=== PATIENT | male | born 1985 | race American Indian/Alaskan Native ===

== ENCOUNTER 2017-11-30 00:29 | Emergency (ER) | payer SELFPAY ==
--- NOTE | 2017-11-30 02:54 | XRay Report ---
FINAL REPORT PROCEDURE: XR CHEST ROUTINE 2V TECHNIQUE: PA and lateral chest radiographs were obtained. CPT 90146 HISTORY: shortness of breath COMPARISON: No prior studies are available for comparison. FINDINGS: Heart: Normal. Mediastinum/Vessels: Normal. Lungs/Pleural space: Normal. Bony thorax: No acute osseous abnormality. Other: IMPRESSION: Normal examination.
[2017-11-30 03:14] LABS: Hematocrit 42.2 % (35.5-45.6); Hemoglobin 13.9 gm/dl (11.8-15.2); Mean Corpuscular HGB Conc 33 % (32-34); Mean Corpuscular Hemoglobin 27 pg (28-32); Mean Corpuscular Volume 82 fl (84-94); Platelet Count 238 K/mm3 (140-440); Red Blood Count 5.13 M/mm3 (3.65-5.03)
[2017-11-30 03:50] LABS: BUN/Creatinine Ratio 16; Blood Urea Nitrogen 13 mg/dL (9-20); Calcium 9.4 mg/dL (8.4-10.2); Hemolysis Index 2
--- NOTE | 2017-11-30 07:17 | Emergency Department Report ---
Minor Respiratory - HPI Chief Complaint: Upper Respiratory Infection Stated Complaint: COUGHING Time Seen by Provider: 11/30/17 07:14 Duration: 6 days Pain Location: Nose (congestion) Severity: moderate Minor Respiratory: Yes Rhinorrhea, Yes Able to Tolerate Fluids, Yes Cough, Yes Shortness of Breath, No Sore Throat, No Ear Pain, No Sick Contacts, No Hemoptysis, No Chest Pain, No Fever Other History: This is a 32-year-old -[place] male who presents with a productive cough for 6 days with shortness of breath and chest tightness. Patient reports having history of asthma. Patient states he is having productive cough with yellowish age sputum. He has not tried taking anything for symptomatic relief. Denies fever, nausea or vomiting, abdominal pain, and sinus pressure. ED Review of Systems ROS: Stated complaint: COUGHING Other details as noted in HPI Constitutional: denies: chills, fever Respiratory: cough, shortness of breath. denies: wheezing Cardiovascular: chest pain (chest tightness with cough). denies: palpitations, dyspnea on exertion, edema, syncope Gastrointestinal: denies: abdominal pain, nausea, vomiting, diarrhea Skin: denies: rash, lesions Neurological: denies: headache, weakness, paresthesias ED Past Medical Hx - Medications Home Medications: Home Medications Medication Instructions Recorded Confirmed Last Taken Type Benzonatate [Tessalon Perle] 100 mg PO TID #30 capsule 11/30/17 Unknown Rx Fluticasone [Flonase] 1 spray NS QDAY #1 bottle 11/30/17 Unknown Rx amLODIPine [Norvasc] 5 mg PO DAILY #30 tab 11/30/17 Unknown Rx guaiFENesin [Guaifenesin] 400 mg PO BID #14 tablet 11/30/17 Unknown Rx Minor Respiratory Exam - Exam General: Vital signs noted. No distress. Alert and acting appropriately. HEENT: Yes Moist Mucous Membranes, Yes Rhinorrhea (turbinates mildly congested with clear discharge), No Pharyngeal Erythema, No Pharyngeal Exudates, No Conjuctival Injection, No Frontal Tenderness, No Maxillary Tenderness Ear: Neither TM Bulge, Neither TM Erythema, Neither EAC Pain, Neither EAC Discharge Neck: Yes Supple, No Adenopathy Lungs: Yes Good Air Exchange, Yes Cough, No Wheezes, No Ronchi, No Stridor, No Labored Respirations, No Retractions, No Use of Accessory Muscles, No Other Abnormal Lung Sounds Heart: Yes Regular, No Murmur Abdomen: Yes Normal Bowel Sounds, No Tenderness, No Peritoneal Signs Skin: No Rash, No Edema Neurologic: Alert and oriented, no deficits. Musculoskeletal: Unremarkable. ED Course Vital Signs 11/30/17 11/30/17 01:00 01:57 Temperature 98.3 F 98.3 F Pulse Rate 58 L 57 L Respiratory 16 16 Rate Blood Pressure 180/107 180/107 O2 Sat by Pulse 100 100 Oximetry ED Medical Decision Making - Lab Data Result diagrams: 11/30/17 03:00 11/30/17 03:00 - Radiology Data Radiology results: report reviewed PROCEDURE: XR CHEST ROUTINE 2V TECHNIQUE: PA and lateral chest radiographs were obtained. CPT 95401 HISTORY: shortness of breath COMPARISON: No prior studies are available for comparison. FINDINGS: Heart: Normal. Mediastinum/Vessels: Normal. Lungs/Pleural space: Normal. Bony thorax: No acute osseous abnormality. Other: IMPRESSION: Normal examination. - Medical Decision Making 32 y.o. male that presents with URI symptoms. Patient examined by me and stable. History of asthma. No distress noted. Blood pressure slightly elevated. Chest xray has been obtained and dictated by radiologist. Patient notified of normal x-ray results with no questions. Labs obtained, potassium low, replaced with Klor-Con 40 MEQ. Given Norvasc 5 mg by mouth once while in the ER. Blood pressure is trending down and patient is asymptomatic. Reviewed results with patient. Encouraged to do supportive care for URI. Start amlodipine 5 mg by mouth daily, Flonase, benzonatate 100 mg 3 times a day when necessary, and guaifenesin. Instructed to keep a blood pressure log and follow up with the primary care provider for hypertension. Follow up with Primary Care Provider at [facility] in 2-3 days. Discharged home stable. Critical care attestation.: If time is entered above; I have spent that time in minutes in the direct care of this critically ill patient, excluding procedure time. ED Disposition Clinical Impression: Asymptomatic hypertension, Elevated blood pressure reading without diagnosis of hypertension, Chest pain in adult, Hypokalemia Upper respiratory infection Qualifiers: URI type: acute nasopharyngitis (common cold) Qualified Code(s): J00 - Acute nasopharyngitis [common cold] Disposition: DC-01 TO HOME OR SELFCARE Is pt being admited?: No Does the pt Need Aspirin: No Condition: Stable Instructions: Chest Pain (ED), Upper Respiratory Infection (ED), DASH Eating Plan (ED), Hypertension (ED) Additional Instructions: Moderate caffeine consumption is acceptable. Begin and maintain aerobic exercise, with a goal of at least 30 minutes of moderate intensity, dynamic aerobic exercise (walking, jogging, cycling, or swimming) 5 days per week to total 150 minutes as tolerated or recommended by a physician. Keep a blood pressure log for 1-2 weeks to take with you to a primary care provider for follow-up of high blood pressure. Take medication daily as prescribed. Increase fluid intake and rest. Wash hands frequently. Continue taking tylenol or ibuprofen to control fever. F/U with Primary Care Provider in 2-3 days. Return to ER if fever, SOB, or difficulty breathing after 48 hours of supportive care. Prescriptions: amLODIPine [Norvasc] 5 mg PO DAILY #30 tab Benzonatate [Tessalon Perle] 100 mg PO TID #30 capsule Fluticasone [Flonase] 1 spray NS QDAY #1 bottle guaiFENesin [Guaifenesin] 400 mg PO BID #14 tablet Referrals: [facility] [Outside] - 3-5 Days [facility] [Outside] - 3-5 Days [facility] [Outside] - 3-5 Days Forms: Work/School Release Form(ED) Time of Disposition: 08:33 Print Language: ROMANSH
[2017-11-30 07:19] LABS: Anisocytosis 1+; Band Neutrophils # (Manual) 0.1 K/mm3; Basophils % (Manual) 0 % (0.0-1.8); Eosinophils % (Manual) 0 % (0.0-4.3); Hypochromasia Few; Total Cells Counted 100
[2017-11-30] MEDS ORDERED: CATAPRES PO ONE (07:49)
[2017-11-30] MEDS ORDERED: K-DUR PO ONE (07:55)
[2017-11-30] MEDS ORDERED: NORVASC PO ONE (08:12)
[2017-11-30 08:44] VITALS: BP 161/106
== END 2017-11-30 08:42 | disposition home or self-care (01) ==
LOC: ED 00:29
DX: J00 Acute nasopharyngitis [common cold] (principal); R07.89 Other chest pain; E87.6 Hypokalemia; I10 Essential (primary) hypertension; J45.909 Unspecified asthma, uncomplicated
CPT/HCPCS: 36415; 71046; 80048; 85007; 85025

== ENCOUNTER 2018-01-08 00:13 | Emergency (ER) | payer SELFPAY ==
[2018-01-08 01:53] VITALS: BP 177/100
[2018-01-08] MEDS ORDERED: ASPIRIN PO ONE (01:53)
[2018-01-08 02:24] LABS: Basophils % (Auto) 0.6 % (0.0-1.8); Eosinophils # (Auto) 0.2 K/mm3 (0.0-0.4); Eosinophils % (Auto) 4.4 % (0.0-4.3); Hematocrit 39.3 % (35.5-45.6); Hemoglobin 12.8 gm/dl (11.8-15.2); Lymphocytes # (Auto) 1.5 K/mm3 (1.2-5.4); Lymphocytes % (Auto) 33.2 % (13.4-35.0); Mean Corpuscular HGB Conc 33 % (32-34); Mean Corpuscular Hemoglobin 27 pg (28-32); Mean Corpuscular Volume 82 fl (84-94); Monocytes # (Auto) 0.6 K/mm3 (0.0-0.8); Platelet Count 219 K/mm3 (140-440); Red Blood Count 4.77 M/mm3 (3.65-5.03); Red Cell Distribution Width 15.5 % (13.2-15.2)
[2018-01-08 02:29] LABS: BUN/Creatinine Ratio 19; Blood Urea Nitrogen 13 mg/dL (9-20); Hemolysis Index 2
--- NOTE | 2018-01-08 05:48 | Emergency Department Report ---
HPI - General Chief Complaint: Chest Pain Time Seen by Provider: 01/08/18 03:18 - HPI HPI: 33-year-old male presents to the ED with chest pain chest pain, onset 4 days hour prior to evaluation while at rest, Location: Right chest Radiation: none, Severity now (0-10): 2, Severity at worst (0-10): 8 Duration: 5 minutes characterized as: sharp. The pain is relieved with aspirin, Patient denies exertional pain, patient denies pleuritic pain. Patient denies associated symptoms, such as nausea/vomiting, no diaphoresis, no shortness of breath. ED Past Medical Hx - Past Medical History Hx Hypertension: Yes Additional medical history: Morbid Obesity - Surgical History Past Surgical History?: No - Family History Family history: hypertension - Social History Smoking Status: Never Smoker Substance Use Type: None - Medications Home Medications: Home Medications Medication Instructions Recorded Confirmed Last Taken Type Benzonatate [Tessalon Perle] 100 mg PO TID #30 capsule 11/30/17 Unknown Rx Fluticasone [Flonase] 1 spray NS QDAY #1 bottle 11/30/17 Unknown Rx guaiFENesin [Guaifenesin] 400 mg PO BID #14 tablet 11/30/17 Unknown Rx ED Review of Systems ROS: Stated complaint: CHEST PAIN Other details as noted in HPI Comment: All other systems reviewed and negative Cardiovascular: chest pain. denies: edema Physical Exam - Physical Exam Vital Signs: Vital Signs 01/08/18 01/08/18 00:14 01:08 Temperature 98.1 F 98.1 F Pulse Rate 51 L 51 L Respiratory 18 18 Rate Blood Pressure 177/100 177/100 O2 Sat by Pulse 97 99 Oximetry Physical Exam: - Physical Exam Physical Exam: - General Limitations: No Limitations General appearance: alert, in no apparent distress, obese - Head Head exam: Present: atraumatic, normocephalic - Eye Eye exam: Present: normal appearance - ENT ENT exam: Present: mucous membranes moist - Neck Neck exam: Present: normal inspection - Respiratory Respiratory exam: Present: normal lung sounds bilaterally. Absent: respiratory distress - Cardiovascular Cardiovascular Exam: Present: normal rhythm. Absent: systolic murmur, diastolic murmur, rubs, gallop - GI/Abdominal GI/Abdominal exam: Present: soft, normal bowel sounds - Extremities Exam Extremities exam: Present: normal inspection - Back Exam Back exam: Present: normal inspection - Neurological Exam Neurological exam: Present: alert, oriented X3 - Psychiatric Psychiatric exam: normal affect and mood - Skin Skin exam: Present: warm, dry, intact, normal color. Absent: rash ED Course Vital Signs 01/08/18 01/08/18 00:14 01:08 Temperature 98.1 F 98.1 F Pulse Rate 51 L 51 L Respiratory 18 18 Rate Blood Pressure 177/100 177/100 O2 Sat by Pulse 97 99 Oximetry ED Medical Decision Making - Lab Data Result diagrams: 01/08/18 02:00 01/08/18 02:00 Critical care attestation.: If time is entered above; I have spent that time in minutes in the direct care of this critically ill patient, excluding procedure time. ED Disposition Clinical Impression: Chest pain Qualifiers: Chest pain type: other chest pain Qualified Code(s): R07.89 - Other chest pain Hypertension Qualifiers: Hypertension type: essential hypertension Qualified Code(s): I10 - Essential ( primary) hypertension Disposition: DC- TO HOME OR SELFCARE Is pt being admited?: No Does the pt Need Aspirin: No Condition: Stable Instructions: Chest Pain (ED), Hypertension (ED) Referrals: SAL MCKEON MD [Staff Physician] - 3-5 Days PRIMARY CARE, [Primary Care Provider] - 3-5 Days
== END 2018-01-08 06:46 | disposition home or self-care (01) ==
LOC: ED 00:13
DX: R07.89 Other chest pain (principal); I10 Essential (primary) hypertension; E66.01 Morbid (severe) obesity due to excess calories; Z68.43 Body mass index [BMI] 50.0-59.9, adult
CPT/HCPCS: 36415; 80048; 84484; 85025; 93005; 93010

== ENCOUNTER 2018-06-14 19:54 | Emergency (ER) | payer SELFPAY ==
[2018-06-14 21:38] LABS: Hematocrit 43.7 % (35.5-45.6); Hemoglobin 14.4 gm/dl (11.8-15.2); Mean Corpuscular HGB Conc 33 % (32-34); Mean Corpuscular Volume 82 fl (84-94); Platelet Count 255 K/mm3 (140-440); Red Blood Count 5.33 M/mm3 (3.65-5.03); Red Cell Distribution Width 14.5 % (13.2-15.2)
[2018-06-14 21:51] LABS: Alanine Aminotransferase 13 units/L (7-56); Albumin 4.3 g/dL (3.9-5); BUN/Creatinine Ratio 19; Blood Urea Nitrogen 13 mg/dL (9-20); Calcium 9.3 mg/dL (8.4-10.2); Hemolysis Index 7
--- NOTE | 2018-06-14 22:16 | XRay Report ---
FINAL REPORT EXAM: XR CHEST ROUTINE 2V HISTORY: JEWELS TECHNIQUE: Two view chest PA and lateral PRIORS: None. FINDINGS: Cardiac and mediastinal contours are unremarkable. No focal pulmonary infiltrate is identified. No pleural fluid collection seen. Pulmonary vasculature is unremarkable. IMPRESSION: Negative two-view chest
[2018-06-14 22:36] LABS: Band Neutrophils # (Manual) 0.1 K/mm3; Basophils % (Manual) 0 % (0.0-1.8); Ovalocytes Few; Total Cells Counted 100
[2018-06-14] MEDS ORDERED: DUONEB *Not for PRN Use IH ONE ×2 (23:08→23:23)
[2018-06-14] MEDS ORDERED: DECADRON IM ONE (23:25)
[2018-06-14] MEDS: NACL 0.9% 1000 ML 1,000 ML IV ONE ×3 (23:25→23:29)
[2018-06-14] MEDS ORDERED: IBUPROFEN PO ONE (23:25)
[2018-06-15 00:11] LABS: Bilirubin,Urine NEG (Negative); Blood,Urine SM (Negative); Calcium Oxalate Crystals,Urine 1+; Color,Urine Yellow (Yellow); Mucus,Urine 2+ /HPF; Protein,Urine <15 mg/dL mg/dL (Negative)
--- NOTE | 2018-06-15 00:17 | Emergency Department Report ---
- General Chief Complaint: Adult Asthma Stated Complaint: SOB/ABD/HEAD PAIN Time Seen by Provider: 06/14/18 23:21 Source: patient Mode of arrival: Ambulatory Limitations: No Limitations - History of Present Illness Initial Comments: Patient started 3-year-old -[place] male hx of obese COPD hypertension for cough nocturnal wheezing 3 days additional albuterol and Atrovent inhalers patient states inhalers help temporarily but cough returns she denies smoking there is no chest pain no nausea vomiting no dizziness no lightheadedness no new or worsening activity intolerance no PND no edema no swelling been no fever or chills. MD Complaint: cough, sore throat, rhinorrhea, nasal congestion Onset/Timin -: week(s) Severity: moderate Severity scale (0 -10): 4 Consistency: intermittent Improves With: other (inhalers ) Worsens With: activity Context: sick contacts Associated Symptoms: rhinorrhea, nasal congestion, cough, shortness of breath Treatments Prior to Arrival: none - Related Data Previous Rx's Medication Instructions Recorded Last Taken Type Benzonatate [Tessalon Perle] 100 mg PO TID #30 capsule 11/30/17 Unknown Rx Fluticasone [Flonase] 1 spray NS QDAY #1 bottle 11/30/17 Unknown Rx guaiFENesin [Guaifenesin] 400 mg PO BID #14 tablet 11/30/17 Unknown Rx Albuterol Sulfate [Proventil Hfa] 2 puff IH Q4H PRN #1 1000units 06/15/18 Unknown Rx Azithromycin [Zithromax Z-YOSVANY] 250 mg PO DAILY #6 tab 06/15/18 Unknown Rx Benzonatate [Tessalon Perles] 200 mg PO Q8HR PRN #30 capsule 06/15/18 Unknown Rx Dexamethasone [Decadron] 4 mg PO Q12H 3 Days #6 tablet 06/15/18 Unknown Rx Ibuprofen 800 mg PO TID PRN #30 tablet 06/15/18 Unknown Rx Ipratropium (Nf) [Atrovent HFA 2 puff IH Q4HR PRN #1 inha 06/15/18 Unknown Rx 17MCG/PUFF] Allergies Allergy/AdvReac Type Severity Reaction Status Date / Time No Known Allergies Allergy Verified 01/08/18 03:20 ED Review of Systems ROS: Stated complaint: SOB/ABD/HEAD PAIN Other details as noted in HPI Constitutional: denies: chills, fever Eyes: denies: eye pain, eye discharge, vision change ENT: throat pain, congestion Respiratory: cough, wheezing Cardiovascular: denies: chest pain, palpitations Endocrine: no symptoms reported Gastrointestinal: denies: abdominal pain, nausea, diarrhea Genitourinary: denies: urgency, dysuria Musculoskeletal: denies: back pain, joint swelling, arthralgia Skin: denies: rash, lesions Neurological: denies: headache, weakness, paresthesias Psychiatric: denies: anxiety, depression Hematological/Lymphatic: denies: easy bleeding, easy bruising ED Past Medical Hx - Past Medical History Previous Medical History?: Yes Hx Hypertension: Yes Hx Asthma: Yes Additional medical history: Morbid Obesity, sleep apnea, irregular heart beat - Surgical History Past Surgical History?: No - Social History Smoking Status: Current Every Day Smoker Substance Use Type: Marijuana - Medications Home Medications: Home Medications Medication Instructions Recorded Confirmed Last Taken Type Benzonatate [Tessalon Perle] 100 mg PO TID #30 capsule 11/30/17 Unknown Rx Fluticasone [Flonase] 1 spray NS QDAY #1 bottle 11/30/17 Unknown Rx guaiFENesin [Guaifenesin] 400 mg PO BID #14 tablet 11/30/17 Unknown Rx Albuterol Sulfate [Proventil Hfa] 2 puff IH Q4H PRN #1 1000units 06/15/18 Unknown Rx Azithromycin [Zithromax Z-YOSVANY] 250 mg PO DAILY #6 tab 06/15/18 Unknown Rx Benzonatate [Tessalon Perles] 200 mg PO Q8HR PRN #30 capsule 06/15/18 Unknown Rx Dexamethasone [Decadron] 4 mg PO Q12H 3 Days #6 tablet 06/15/18 Unknown Rx Ibuprofen 800 mg PO TID PRN #30 tablet 06/15/18 Unknown Rx Ipratropium (Nf) [Atrovent HFA 2 puff IH Q4HR PRN #1 inha 06/15/18 Unknown Rx 17MCG/PUFF] ED Physical Exam - General Limitations: No Limitations General appearance: alert, in no apparent distress - Head Head exam: Present: atraumatic, normocephalic - Eye Eye exam: Present: normal appearance, PERRL, EOMI Pupils: Present: normal accommodation - ENT ENT exam: Present: normal orophraynx, mucous membranes moist, TM's normal bilaterally, normal external ear exam - Neck Neck exam: Present: normal inspection, full ROM. Absent: tenderness, meningismus, lymphadenopathy, thyromegaly - Respiratory Respiratory exam: Present: normal lung sounds bilaterally, chest wall tenderness. Absent: respiratory distress, wheezes, rales, stridor - Cardiovascular Cardiovascular Exam: Present: regular rate, normal rhythm, normal heart sounds. Absent: systolic murmur, diastolic murmur, rubs, gallop - GI/Abdominal GI/Abdominal exam: Present: soft, normal bowel sounds. Absent: tenderness, bruit, hernia - Rectal Rectal exam: Present: deferred - Extremities Exam Extremities exam: Present: normal inspection, full ROM, normal capillary refill. Absent: tenderness, pedal edema, joint swelling, calf tenderness - Back Exam Back exam: Present: normal inspection, full ROM. Absent: tenderness, CVA tenderness (R), CVA tenderness (L), muscle spasm - Neurological Exam Neurological exam: Present: alert, oriented X3, CN II-XII intact, normal gait - Psychiatric Psychiatric exam: Present: normal affect, normal mood - Skin Skin exam: Present: warm, dry, intact, normal color. Absent: rash ED Medical Decision Making - Lab Data Result diagrams: 06/14/18 21:11 06/14/18 21:11 Labs 06/14/18 06/14/18 06/14/18 21:11 21:11 22:40 WBC 5.5 RBC 5.33 H Hgb 14.4 Hct 43.7 MCV 82 L MCH 27 L MCHC 33 RDW 14.5 Plt Count 255 Nolan % (Auto) Mold Preparer Add Manual Diff Complete Total Counted 100 Seg Neuts % (Manual) 70.0 Band Neutrophils % 1.0 Lymphocytes % (Manual) 13.0 L Reactive Lymphs % (Man) 0 Monocytes % (Manual) 14.0 H Eosinophils % (Manual) 2.0 Basophils % (Manual) 0 Metamyelocytes % 0 Myelocytes % 0 Promyelocytes % 0 Blast Cells % 0 Nucleated RBC % Not Reportable Seg Neutrophils # Man 3.9 Band Neutrophils # 0.1 Lymphocytes # (Manual) 0.7 L Abs React Lymphs (Man) 0.0 Monocytes # (Manual) 0.8 Eosinophils # (Manual) 0.1 Basophils # (Manual) 0.0 Metamyelocytes # 0.0 Myelocytes # 0.0 Promyelocytes # 0.0 Blast Cells # 0.0 WBC Morphology Not Reportable Hypersegmented Neuts Not Reportable Hyposegmented Neuts Not Reportable Hypogranular Neuts Not Reportable Smudge Cells Not Reportable Toxic Granulation Not Reportable Toxic Vacuolation Not Reportable Dohle Bodies Not Reportable Pelger-Huet Anomaly Not Reportable Vineet Rods Not Reportable Platelet Estimate Appears normal Clumped Platelets Not Reportable Plt Clumps, EDTA Not Reportable Large Platelets Not Reportable Giant Platelets Not Reportable Platelet Satelliting Not Reportable Plt Morphology Comment Not Reportable RBC Morphology Not Reportable Dimorphic RBCs Not Reportable Polychromasia Not Reportable Hypochromasia Not Reportable Poikilocytosis Not Reportable Anisocytosis Not Reportable Microcytosis Not Reportable Macrocytosis Not Reportable Spherocytes Not Reportable Pappenheimer Bodies Not Reportable Sickle Cells Not Reportable Target Cells Not Reportable Tear Drop Cells Not Reportable Ovalocytes Few Helmet Cells Not Reportable [place]rey[place] Bodies Not Reportable [place] Rings Not Reportable [place] Cells Not Reportable Bite Cells Not Reportable Crenated Cell Not Reportable Elliptocytes Not Reportable Acanthocytes (Spur) Not Reportable Rouleaux Not Reportable Hemoglobin C Crystals Not Reportable Schistocytes Not Reportable Malaria parasites Not Reportable Laurent Bodies Not Reportable Hem Pathologist Commnt No Sodium 141 Potassium 3.7 Chloride 103.6 Carbon Dioxide 26 Anion Gap 15 BUN 13 Creatinine 0.7 L Estimated GFR > 60 BUN/Creatinine Ratio 19 Glucose 89 Calcium 9.3 Total Bilirubin 0.40 AST 11 ALT 13 Alkaline Phosphatase 51 Total Protein 6.7 Albumin 4.3 Albumin/Globulin Ratio 1.8 Urine Color Yellow Urine Turbidity Clear Urine pH 5.0 Ur Specific [place] 1.033 H Urine Protein <15 mg/dl Urine Glucose (UA) Neg Urine Ketones Neg Urine Blood Sm Urine Nitrite Neg Urine Bilirubin Neg Urine Urobilinogen 2.0 Ur Leukocyte Esterase Neg Urine WBC (Auto) 6.0 Urine RBC (Auto) 8.0 U Epithel Cells (Auto) 3.0 Calcium Oxalate Crystal 1+ Urine Mucus 2+ - Radiology Data Radiology results: report reviewed, image reviewed Findings [facility] [address] [place] [address] XRay Report Signed Patient: CHULA JUNG MR#: [id number] : 1985 Acct:[id number] Age/Sex: 33 / M ADM Date: 06/14/18 Loc: ED Attending Dr: Ordering Physician: DIAN MOHAMUD MD Date of Service: 06/14/18 Procedure(s): XR chest routine 2V Accession Number(s): [id number] cc: DIAN MOHAMUD MD Fluoro Time In Minutes: FINAL REPORT EXAM: XR CHEST ROUTINE 2V HISTORY: JEWELS TECHNIQUE: Two view chest PA and lateral PRIORS: None. FINDINGS: Cardiac and mediastinal contours are unremarkable. No focal pulmonary infiltrate is identified. No pleural fluid collection seen. Pulmonary vasculature is unremarkable. IMPRESSION: Negative two-view chest Transcribed By: DEBORAH Dictated By: CHAI MORRIS MD Electronically Authenticated By: CHAI MORRIS MD Signed Date/Time: 06/14/18 7320 - Medical Decision Making This is bronchitis versus COPD exacerbation x-rays normal infiltration opaciti es plan Z-Yosvany refill inhalers Dr. Carson fraser Tessalon Perlangelia when necessary cough patient will follow up with PCP in 2-3 days return to emergency department should symptoms worsen is no wheezing at this time after nebulizer given in ED patient is ambulatory without increased shortness of breath he is back to baseline patient will be DC'd home in stable condition at this time Critical care attestation.: If time is entered above; I have spent that time in minutes in the direct care of this critically ill patient, excluding procedure time. ED Disposition Clinical Impression: Bronchitis Disposition: DC-01 TO HOME OR SELFCARE Is pt being admited?: No Does the pt Need Aspirin: No Condition: Stable Instructions: Chronic Bronchitis (ED) Prescriptions: Albuterol Sulfate [Proventil Hfa] 2 puff IH Q4H PRN #1 1000units PRN Reason: shortness of breath Azithromycin [Zithromax Z-YOSVANY] 250 mg PO DAILY #6 tab Benzonatate [Tessalon Perles] 200 mg PO Q8HR PRN #30 capsule PRN Reason: . Dexamethasone [Decadron] 4 mg PO Q12H 3 Days #6 tablet Ibuprofen 800 mg PO TID PRN #30 tablet PRN Reason: pain fever Ipratropium (Nf) [Atrovent HFA 17MCG/PUFF] 2 puff IH Q4HR PRN #1 inha PRN Reason: shortness of breath Referrals: PRIMARY CARE, [Primary Care Provider] - 3-5 Days Forms: Work/School Release Form(ED) Time of Disposition: 00:23
[2018-06-15 00:42] VITALS: BP 163/98
== END 2018-06-15 00:40 | disposition home or self-care (01) ==
LOC: ED 19:54
DX: J40 Bronchitis, not specified as acute or chronic (principal); I10 Essential (primary) hypertension; E66.01 Morbid (severe) obesity due to excess calories; F17.200 Nicotine dependence, unspecified, uncomplicated; F12.10 Cannabis abuse, uncomplicated
CPT/HCPCS: 36415; 71046; 80053; 81001; 85007; 85025; 93005; 93010; 94640; 96372; 99284; J1100